=== PATIENT | male | born 1955 | race Caucasian/White ===

== ENCOUNTER → 2020-01-10 | Outpatient (CLI) | payer OTHER ==
[2020-01-10 13:51] LABS: PLATELET COUNT, AUTOMATED 330 10^3/uL (150-450)
[2020-01-10 14:18] LABS: PROTHROMBIN TIME 13.4 SECONDS (12.5-14.3)
[2020-01-10 14:19] LABS: PARTIAL THROMBOPLASTIN TIME 35.9 SECONDS (24.2-38.5)
== END ==
LOC: M PLALAB 11:13
PROVIDERS: ATTEND Internal Medicine Pulmonary Disease
DX: J44.9 Chronic obstructive pulmonary disease, unspecified (principal)

== ENCOUNTER 2020-02-02 07:29 | Day surgery (SDC) | payer MEDICARE, OTHER ==
[~2020-02-02] VITALS: Ht 175.3 cm; Wt 56.3 kg
[~2020-02-02 07:29] MED LIST: ALBUTEROL SULFATE 2.5 MG/0.5 ML INH NEB SOLN NEB ONE; ECOT81TA5 PO; ISOS30TA4; LIDOCAINE 4% INJ 5ML AMP NEB ONE; LR 1,000 ML IV ONE; METO1TAB32; MONT5TAB2; MULTCAP PO; OMEP-218; ROSU10TA6
[2020-02-02] MEDS ORDERED: ROCURONIUM BROMIDE 50 MG/5 ML VIAL As Ordered ONE (08:04)
[2020-02-02] MEDS ORDERED: SUGAMMADEX SODIUM 500 MG/5 ML VIAL (BRIDION) As Ordered ONE ×2 (08:04→09:12)
[2020-02-02] MEDS ORDERED: dexameTHASONE 4 MG/ML 1ML VIAL (J1100 PER 1MG) As Ordered ONE (08:04)
[2020-02-02] MEDS ORDERED: propofoL 200 MG/20 ML VIAL As Ordered ONE (08:04)
[2020-02-02] MEDS ORDERED: LIDOCAINE 2% 100MG/5ML SDV (FOR ANES.) As Ordered ONE (08:04)
[2020-02-02] MEDS ORDERED: fentaNYL 100 MCG/2 ML INJECTION (J3010) As Ordered ONE (08:04)
[2020-02-02] MEDS ORDERED: ONDANSETRON 4MG/2ML VIAL As Ordered ONE (08:04)
[2020-02-02] MEDS ORDERED: MIDAZOLAM INJ 2MG/2ML VIAL (J2250 PER 1MG) As Ordered ONE (08:04)
[2020-02-02] MEDS ORDERED: EPINEPHrine 1MG/10ML SYRINGE 1.5IN As Ordered ONE (09:47)
[2020-02-02] MEDS ORDERED: LIDOCAINE 1% MDV 20ML VIAL As Ordered ONE (09:47)
[2020-02-02] MEDS ORDERED: CETACAINE SPRAY 5GM As Ordered ONE (09:48)
[2020-02-02] MEDS ORDERED: LIDOCAINE VISCOUS 2% SOLN 15ML UDC As Ordered ONE (09:48)
[2020-02-02] MEDS ORDERED: THROMBIN SOLN 5,000 UNITS VIAL As Ordered ONE (09:49)
[2020-02-02] MEDS ORDERED: ONDANSETRON 4MG/2ML VIAL IV PRN (12:00)
[2020-02-02] MEDS ORDERED: LR 1,000 ML IV SCH (12:00)
[2020-02-02] MEDS ORDERED: METOCLOPRAMIDE INJ 10MG/2ML VIAL (J2765 PER 1) IV PRN (12:00)
[2020-02-02] MEDS ORDERED: PERCOCET 5MG/325MG TAB PO PRN (12:00)
[2020-02-02] MEDS ORDERED: fentaNYL 100 MCG/2 ML INJECTION (J3010) IV PRN (12:00)
--- NOTE | 2020-02-02 12:02 | REP ---
INDICATION: LEFT UPPER LOBE ABNORMALITY, CANCER AND RIGHT HILAR ADENOPAT. COMPARISON: None. TECHNIQUE: Intraoperative fluoroscopic imaging from bronchoscopic examination. FINDINGS: Bronchoscope identified extending into the left mid lung zone. Total fluoroscopic time 134.5 seconds. IMPRESSION: Imaging demonstrates left lung bronchoscopy. <Electronically signed by Gonzalo Hutchison > 02/02/20 1158
--- NOTE | 2020-02-02 12:13 | ROOR ---
Patient Name: Gabriel Zepeda Procedure Date: 02/02/2020 9:55 AM Date of : 1955 Admit Type: Outpatient Age: 65 Room: Main OR Note Status: Finalized Attending MD: Mary Lima MD Procedure: Bronchoscopy Indications: Suspicious left upper lobe lesion, Hilar lymphadenopathy of the right side Providers: Mary Lima MD (Doctor), Scott Francisco DO, [facility] (1st Assisting Doctor) Referring MD: Sadaf Ocampo MD (Referring MD) Requesting Physician: Medicines: Lidocaine 4% via nebulizer with Albuterol 2.5 mg, Epinephrine 1 mg/10 mL topical 1 mL, Cetacaine topical, General Anesthesia Complications: No immediate complications. Estimated blood loss: Minimal Procedure: Pre-Anesthesia Assessment: - Prior to the procedure, a History and Physical was performed, and patient medications and allergies were reviewed. The patient's tolerance of previous anesthesia was also reviewed. The risks and benefits of the procedure and the sedation options and risks were discussed with the patient. All questions were answered, and informed consent was obtained. Prior Anticoagulants: The patient has taken aspirin, last dose was day of procedure. ASA Grade Assessment: III - A patient with severe systemic disease. After reviewing the risks and benefits, the patient was deemed in satisfactory condition to undergo the procedure. - Patient identification and proposed procedure were verified prior to the procedure by the physician, the nurse, the anesthesiologist, the custodial services manager and the military pay technician. The procedure was verified in the procedure room. The Bronchoscope was introduced through the mouth, via the endotracheal tube (the patient was intubated for the procedure) and advanced to the tracheobronchial tree of both lungs. The procedure was accomplished without difficulty. The patient tolerated the procedure well. Findings: The endotracheal tube is in good position. The visualized portion of the trachea is of normal caliber. The amina is sharp. The tracheobronchial tree was examined to at least the first subsegmental level. Bronchial mucosa and anatomy are normal; there was normal anatomic variant in left upper lobe segmental bronchi with three segments. The bronchial mucosa with scattered webbing and pitting, there are no endobronchial lesions, and few mucoid secretions. An endobronchial ultrasound endoscope was utilized in order to assist with fine needle aspiration in the right hilum. Transbronchial needle aspirations of a lymph node were performed in the right hilum using an Olympus EBUS-TBNA 21 gauge needle and sent for routine cytology. The procedure was guided by ultrasound. Transbronchial needle aspiration technique was selected because the sampling site was not visible endoscopically. [employer] Robotic Electromagnetic navigation bronchoscopy was performed. The CT scan was used for planning purposes. A virtual bronchoscopic image was generated using the planning software. The target in the inferior lingula segment of the left upper lobe was marked. A peribronchial lymph was found and a pathway was created. After a complete airway exam, the robotic electromagnetic navigation phase was then begun to locate the target lesion(s). Positioning off-center (in relation to the lesion) was confirmed using the Olympus radial probe US catheter. Transbronchial needle aspirations of a peribronchial lymph node were performed in the inferior lingula segment of the left upper lobe using a fine (20 gauge) needle and sent for histopathology examination. The procedure was guided by fluoroscopy. The sampling device penetrated the full thickness of the bronchial wall in order to reach the sampling site. Bronchoalveolar lavage was performed in the SEB inferior lingular segment (B5) of the lung and sent for routine cytology and bacterial, AFB and fungal analysis. The return was blood-tinged. Mucous plugs were present in the return fluid. Impression: - Suspicious left upper lobe lesion - Hilar lymphadenopathy of the right side - The airway examination was normal. - Endobronchial ultrasound was performed. - Electromagnetic navigation bronchoscopy was performed. - A transbronchial needle aspiration was performed. Recommendation: - Follow up with bronchoscopist as previously scheduled. Procedure Code(s): --- Professional --- 02793, Bronchoscopy, rigid or flexible, including fluoroscopic guidance, when performed; with transbronchial needle aspiration biopsy(s), trachea, main stem and/or lobar bronchus(i) 24545, Bronchoscopy, rigid or flexible, including fluoroscopic guidance, when performed; with bronchial alveolar lavage 67226, Bronchoscopy, rigid or flexible, including fluoroscopic guidance, when performed; with computer-assisted, image-guided navigation (List separately in addition to code for primary procedure[s]) 41875, Bronchoscopy, rigid or flexible, including fluoroscopic guidance, when performed; with transendoscopic endobronchial ultrasound (EBUS) during bronchoscopic diagnostic or therapeutic intervention(s) for peripheral lesion(s) (List separately in addition to code for primary procedure[s]) CPT copyright 2019 [employer]. All rights reserved. The codes documented in this report are preliminary and upon limited radiology technician review may be revised to meet current compliance requirements. Attending Participation: I personally performed the entire procedure. Mary Lima MD 02/02/2020 12:13:40 PM Scott Francisco DO, [facility] Number of Addenda: 0 Note Initiated On: 02/02/2020 9:55 AM
[2020-02-02] MEDS ORDERED: ALBUTEROL SULFATE 2.5 MG/0.5 ML INH NEB SOLN INH ONE (12:15)
--- NOTE | 2020-02-02 12:28 | REP ---
INDICATION: POST OP IN PACU COMPARISON: None. TECHNIQUE: Portable AP view of the chest FINDINGS: Right anterobasilar pneumothorax of approximately 35% noted with chest tube identified. Areas of atelectasis in the medial right lower lung zone noted along with diffuse chronic appearing interstitial changes bilaterally. Mediastinum and cardiac silhouette are grossly normal. Skeletal structures are intact. IMPRESSION: Moderate right anterobasilar pneumothorax along with associated medial passive atelectasis and diffuse chronic interstitial changes. <Electronically signed by Gonzalo Hutchison > 02/02/20 2320
[2020-02-02 13:20] VITALS: BP 115/65
== END 2020-02-02 13:20 | disposition home or self-care (01) ==
LOC: M SDC 07:29
PROVIDERS: ATTEND Internal Medicine Pulmonary Disease
DX: C77.1 Secondary and unspecified malignant neoplasm of intrathoracic lymph nodes (principal); R59.0 Localized enlarged lymph nodes; K21.9 Gastro-esophageal reflux disease without esophagitis; I10 Essential (primary) hypertension; I25.2 Old myocardial infarction; Z98.61 Coronary angioplasty status; J44.9 Chronic obstructive pulmonary disease, unspecified
CPT/HCPCS: 31624; 31627; 31629; 31654; 71045; 76000; 87070; 87102; 87116; 87205; 87206; 88108; 88173; 88305; 88313; 88342; C1887; J1100; J2250; J2405; J3010; S2900